=== PATIENT | male | born 1995 | race Caucasian/White ===

== ENCOUNTER 2019-03-20 15:15 | Emergency (ER) | payer MEDICAID ==
[2019-03-20] MEDS ORDERED: BUFFERED LIDOCAINE 10 ML SYRINGE SUBQ STA (15:30)
[2019-03-20] MEDS ORDERED: LORazepam 1 MG TABLET PO STA (15:30)
[2019-03-20] MEDS ORDERED: TETANUS/DIPHTHERIA/PERTUSSIS 0.5 ML SYRINGE IM ONE (15:30)
--- NOTE | 2019-03-20 15:32 | ED Physician Documentation ---
PD HPI UPPER EXT INJURY - Stated complaint Stated Complaint: LEFT HAND LACERATION - Chief complaint Chief Complaint: Laceration - History obtained from History obtained from: Patient - History of Present Illness Location: Left (He was working on his timing belt on his own car and the timing belt cut him on the left thumb. He has a laceration on the left thumb, no other injuries. Tetanus is unknown. Of note he is very anxious.) Review of Systems Constitutional: reports: Reviewed and negative Cardiac: reports: Reviewed and negative Respiratory: reports: Reviewed and negative PD PAST MEDICAL HISTORY - Present Medications Home Medications: Ambulatory Orders Medication Instructions Recorded Confirmed Cephalexin [Keflex] 500 mg PO Q6H #28 capsule 03/20/19 Hydrocodone/Acetaminophen 1 - 2 each PO Q6H PRN #7 tablet 03/20/19 [Hydrocodon-Acetaminophen 5-325] - Allergies Allergies/Adverse Reactions: Allergies Allergy/AdvReac Type Severity Reaction Status Date / Time amphetamine [From Adderall] AdvReac Hallucinati Verified 03/20/19 15:25 ons dextroamphetamine AdvReac Hallucinati Verified 03/20/19 15:25 [From Adderall] ons PD ED PE NORMAL - Vitals Vital signs reviewed: Yes - General General: Alert and oriented X 3, No acute distress - Extremities Extremities: Other (The left thumb nail is almost completely avulsed, it is hanging by a little bit of the nail plate on the ulnar side, then he has a laceration through the nailbed and over onto the side of the proximal phalanx on the radial side without distal neurovascular compromise.) - Neuro Neuro: Alert and oriented X 3, Normal speech Results - Vitals Vitals: Vital Signs - 24 hr 03/20/19 15:22 Temperature 36.5 C Heart Rate 67 Respiratory 18 Rate Blood Pressure 134/70 H - Rads (name of study) L thumb Radiology: EMP read contemporaneously (open tuft frx) PD MEDICAL DECISION MAKING - ED course ED course: This is a very anxious gentleman with an open thumb fracture of the left hand with an extensive laceration crossing the nailbed and onto the tip of the finger. Despite giving him Ativan before hand he did not want any anesthetic or needles. Without anesthesia at his request the nail was debrided and taken off during exam. I recommended suturing which she refused. He would prefer an open treatment approach. I discussed with him that this was not recommended or preferred, but he continued to refuse closure/sutures/anesthetic. After wound irrigation the nurse dressed it with Xeroform and a wrap and then a splint. Departure - Departure Disposition: 01 Home, Self Care Clinical Impression: Laceration Open finger fracture Qualifiers: Encounter type: initial encounter Finger: thumb Phalanx: distal Fracture alignment: nondisplaced Laterality: left Qualified Code(s): S62.525B - Nondisplaced fracture of distal phalanx of left thumb, initial encounter for open fracture Instructions: ED Fx Finger Open Follow-Up: [facility] [Provider Group] Prescriptions: Cephalexin [Keflex] 500 mg PO Q6H #28 capsule Hydrocodone/Acetaminophen [Hydrocodon-Acetaminophen 5-325] 1 - 2 each PO Q6H PRN #7 tablet PRN Reason: pain Comments: You keep the current splint on for 48 hours, then he can briefly remove it and wash it, place a new dressing and keep it covered, then replaced the splint. For severe pain please return immediately or for any other new symptoms. Follow-up with the orthopedic surgeon within the week for recheck. Sutures need to come out in about 2 weeks. Do not work with the left hand until full healing which may take a few weeks.
[2019-03-20] MEDS ORDERED: cephALEXin 250 MG CAPSULE PO STA (16:04)
--- NOTE | 2019-03-20 16:13 | XRAY Report ---
Reason: thumb inj Procedure Date: 03/20/2019 Accession Number: [id number] / [id number] Procedure: XR - Finger(s) LT CPT Code: FULL RESULT: EXAM: LEFT FIRST DIGIT RADIOGRAPHY EXAM DATE: 03/20/2019 04:03 PM. CLINICAL HISTORY: Trauma, pain. COMPARISON: None. TECHNIQUE: 3 views. FINDINGS: Bones: Nondisplaced first distal phalangeal fracture with an oblique fracture line from the mid phalanx through the tuft and an additional transverse fracture line through the tuft. Otherwise unremarkable. Joints: Normal. No subluxations. Soft Tissues: Soft tissue swelling. IMPRESSION: Nondisplaced first distal phalangeal fracture. [facility]
[2019-03-20 17:37] VITALS: BP 128/68
== END 2019-03-20 16:30 | disposition home or self-care (01) ==
LOC: ED 15:15
DX: S62.525B Nondisplaced fracture of distal phalanx of left thumb, initial encounter for open fracture (principal); S61.112A Laceration without foreign body of left thumb with damage to nail, initial encounter; W45.8XXA Other foreign body or object entering through skin, initial encounter; Y93.89 Activity, other specified
CPT/HCPCS: 11720; 73140; 99283; A9270; J8499